=== PATIENT | female | born 1990 | race Caucasian/White ===

== ENCOUNTER 2017-05-12 10:41 | Emergency (ER) | payer BC ==
[~2017-05-12] VITALS: Ht 172.7 cm; Wt 93.6 kg
[~2017-05-12 10:41] MED LIST: ALLEGRA30 MG PO; ANTIVERT25 MG PO; CHROMAGEN,1 CAPSULE PO; Colace PO; ENDOCET 5-3251 EACH PO; Feosol PO; HYDROCODON-ACE1 EAC7 PO; IBUPROFEN800 MG PO; MOTRIN800 MG PO; MULTIVITAMIN1 EAC2 PO; Motrin PO; NASONEX17 GM BOTH NARES; NOHOMEMEDS; PRENATAL TABLE1 EAC3 PO; TUMS500 MG PO; ZOFRAN4 MG PO
[2017-05-12 11:08] LABS: HEMATOCRIT 40.6 % (36.0-46.0); MCH 31.6 PG (29.0-34.0); MCV 92.9 FL (83-99); PLATELET COUNT 232 K/uL (156-360); RBC DIS.WIDTH-CV 11.9 % (11.8-14.6); RBC DIS.WIDTH-SD 40.8 % (39-53); RED BLOOD COUNT 4.37 M/uL (3.80-5.20); WHITE BLOOD COUNT 7.7 K/uL (4.1-10.2)
[2017-05-12 11:20] LABS: CHLORIDE 105 mEq/L (99-109); POTASSIUM 3.9 mEq/L (3.7-5.4); SODIUM 140 mEq/L (136-147)
[2017-05-12 11:22] LABS: GLUCOSE 103 mg/dL (70-99)
[2017-05-12 11:23] LABS: ANION GAP 10 MEQ/L (2-14)
[2017-05-12 11:24] LABS: TOTAL BILIRUBIN 0.4 mg/dL (0.0-1.0)
[2017-05-12 11:25] LABS: ALKALINE PHOSPHATASE 60 IU/L (3-129)
[2017-05-12 11:26] LABS: GFR ESTIMATE (CALCULATED) > 59 mL/min/
[2017-05-12 11:27] LABS: UREA NITROGEN (BUN) 6 mg/dL (9-23)
[2017-05-12 11:34] LABS: QUANTITATIVE HCG < 4.0 MIU/ML
[2017-05-12 12:12] LABS: ADD MIUA? YES; BILIRUBIN NEGATIVE; BLOOD MODERATE; COLOR STRAW ((YELLOW)); GLUCOSE (STRIP) NEGATIVE; KETONES NEGATIVE; LEUKOCYTES MODERATE; NITRITE NEGATIVE; PROTEIN (STRIP) NEGATIVE; SPECIFIC GRAVITY 1.004 (1.000-1.030); UROBILINOGEN 0.2 MG/DL (0.2-1.0)
[2017-05-12 12:18] LABS: BACTERIA RARE /HPF; EPITHELIAL CELLS 1+ /HPF; MUCUS NONE SEEN /LPF; RED BLOOD CELLS 0-5 /HPF (0-5); UCUL ADDED? YES
[2017-05-12] MEDS ORDERED: BENTYL10 MG PO (14:48)
[2017-05-12 15:05] VITALS: BP 120/71
== END 2017-05-12 15:06 | disposition home or self-care (01) ==
LOC: EME 10:41
DX: R10.31 Right lower quadrant pain (principal); R11.0 Nausea; M54.5 Low back pain; N20.0 Calculus of kidney; Z90.710 Acquired absence of both cervix and uterus; F17.200 Nicotine dependence, unspecified, uncomplicated
CPT/HCPCS: 74177; 80053; 81003; 84702; 85027; 87086; 99281; 99284; J7030